=== PATIENT | male | born 1995 | race American Indian/Alaskan Native ===

== ENCOUNTER 2021-02-05 07:31 | Emergency (ER) | payer SELFPAY ==
[2021-02-05 07:41] VITALS: BP 125/84
--- NOTE | 2021-02-05 09:46 | Emergency Department Report ---
ED General Adult HPI - General Chief complaint: Back Pain/Injury Stated complaint: BETSEY LEG/BACK PAIN Time Seen by Provider: 02/05/21 09:21 Source: patient Mode of arrival: Ambulatory Limitations: No Limitations - History of Present Illness Initial comments: 25-year-old male patient presents emergency department complaints of nontraumatic low back pain radiating down the posterior aspect of his left thigh starting approximately 10 days ago. 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 He has taken [id number] natural remedies with limited relief. Patient cannot recall a specific fall, trauma, or injury to the low back. No history of back problems. Denies fever, abdominal pain, nausea, vomiting, bladder/bowel incontinence, urinary retention, numbness, paresthesias, weakness. Denies all other complaints at this time. - Related Data Previous Rx's Medication Instructions Recorded Last Taken Type Lidocaine [Lidoderm] 1 each TP BID #20 adh..patch 02/05/21 Unknown Rx Naproxen 500 mg PO BID #20 tablet 02/05/21 Unknown Rx ED Review of Systems ROS: Stated complaint: BETSEY LEG/BACK PAIN Other details as noted in HPI Other: GENERAL: Negative for fever. CARDIOVASCULAR: Negative for chest pain. PULMONARY: Negative for shortness of breath. GASTROINTESTINAL: Negative for abdominal pain. MUSCULOSKELETAL: Positive for back pain and leg pain. NEUROLOGICAL: Negative for headache. INTEGUMENTARY: Negative for rash. ED Past Medical Hx - Past Medical History Previous Medical History?: No - Surgical History Past Surgical History?: No - Medications Home Medications: Home Medications Medication Instructions Recorded Confirmed Last Taken Type Lidocaine [Lidoderm] 1 each TP BID #20 adh..patch 02/05/21 Unknown Rx Naproxen 500 mg PO BID #20 tablet 02/05/21 Unknown Rx ED Physical Exam - General Limitations: No Limitations - Other Other exam information: General: Awake, appropriately interactive, no acute distress. Neck: Supple. Full range of motion intact. Cardiovascular: Normal peripheral perfusion. Pulmonary: No respiratory distress. Patient is speaking normally without use of accessory muscles. Skin: No apparent rashes or lesions. Neurological: No facial asymmetry. Speech is clear. Follows commands. Patient is alert and oriented. Musculoskeletal: Moves all four extremities spontaneously with normal range of motion. Back: There is midline lumbar tenderness without step-offs. No palpable muscle spasm. Straight leg raise is positive on the left with reproduction of symptoms along the L3 nerve root distribution. No saddle anesthesia. Distal neurovascular and motor/sensory function intact. Psych: Cooperative. Appropriate mood and affect. ED Course Vital Signs 02/05/21 07:40 Temperature 98.2 F Pulse Rate 79 Respiratory 15 Rate Blood Pressure 125/84 O2 Sat by Pulse 98 Oximetry ED Medical Decision Making - Medical Decision Making Differential diagnosis including but not limited to: cauda equina syndrome, discitis, spinal epidural abscess, disc herniation, sciatica, strain/sprain Patient presents emergency department with complaints of nontraumatic low back pain radiating down the posterior aspect of his left thigh. The patients back pain is not associated with numbness, tingling, or loss of strength. There is no acute urinary incontinence or retention and no bowel incontinence or retention. There is no saddle anesthesia. The patient is afebrile and neurovascularly intact. No clinical evidence for acute nerve compression (such as cauda equine syndrome) or infection (such as epidural abscess). History and exam findings are suggestive of sciatica. It has been explained to the patient that advanced imaging such as CT or MRI is not indicated at this time but should be considered if symptoms recur or worsen. Discharged home with appropriate prescriptions and instructions to follow up with primary care provider. Strict return precautions provided. Emphasized the importance of outpatient follow-up and specific signs/symptoms that should warrant immediate return to the emergency department. Patient expressed understanding and was given the opportunity to ask questions, all of which were satisfactorily answered prior to discharge home. Critical care attestation.: If time is entered above; I have spent that time in minutes in the direct care of this critically ill patient, excluding procedure time. ED Disposition Clinical Impression: Sciatica Qualifiers: Laterality: left Qualified Code(s): M54.32 - Sciatica, left side Disposition: -01 TO HOME OR SELFCARE Is pt being admited?: No Does the pt Need Aspirin: No Condition: Stable Instructions: Sciatica, [id number] Additional Instructions: Take Tylenol every 4 hours as needed for pain. Take Naprosyn twice daily with food as needed for pain. Apply Lidoderm patches to affected area as needed for pain. Apply heat to affected area as needed for pain. Gradually advance physical activity slowly as tolerated. Follow-up with Dr. Adams, primary care provider, within 1 week. Call tomorrow to schedule an appointment and arrange physical therapy. Return to the emergency department immediately for new or worsening symptoms. Specifically, return to the emergency department immediately for increased pain, fever, weakness, numbness, inability to walk, inability to use the bathroom, or any other concerns. Prescriptions: Lidocaine [Lidoderm] 1 each TP BID #20 adh..patch Naproxen 500 mg PO BID #20 tablet Referrals: KARYN ADAMS MD [Staff Physician] - 3-5 Days Forms: Work/School Release Form(ED) Time of Disposition: 09:46
== END 2021-02-05 10:02 | disposition home or self-care (01) ==
LOC: ED 07:31
DX: M54.42 Lumbago with sciatica, left side (principal); Z79.899 Other long term (current) drug therapy
CPT/HCPCS: 99281